=== PATIENT | female | born 1950 | race Caucasian/White ===

== ENCOUNTER 2019-01-29 07:33 | Inpatient (IN) | payer BC, MEDICARE ==
[~2019-01-29 07:33] MED LIST: Acetaminophen TAB* 325 MG PO ONE; Buffered Lidocaine 1% SYRIN* 1 ML/SYRINGE INTRADERM ONE; Dexamethasone IV* 4 MG/ML 1 ML (4 MG) IV SLOW PU ONE; Famotidine TAB* 20 MG PO ONE; Gabapentin CAP(*) 300 MG PO ONE; Tranexamic Acid 1,000 MG in NS 0.9% 50 ML* (outpatient use) IV SCH; celeCOXIB CAP* 200 MG PO ONE
[2019-01-29] MEDS ORDERED: celeCOXIB CAP* 100 MG ONE (07:57)
[2019-01-29] MEDS ORDERED: Dexamethasone IV* 4 MG/ML 1 ML (4 MG) ONE (07:57)
[2019-01-29] MEDS ORDERED: Famotidine TAB* 20 MG ONE (07:58)
[2019-01-29] MEDS ORDERED: Acetaminophen TAB* 325 MG ONE (07:58)
[2019-01-29] MEDS ORDERED: Buffered Lidocaine 1% SYRIN* 1 ML/SYRINGE INTRADERM ONE (07:58)
[2019-01-29] MEDS ORDERED: Gabapentin CAP(*) 300 MG ONE (07:58)
[2019-01-29] MEDS ORDERED: ceFAZolin 2 GM in NS PREMIX(*) 2 GM/100 ML BAG IVPB ONE (07:59)
[2019-01-29] MEDS: Lactated Ringers 1000 ML Bag* 1,000 ML IV SCH ×2 (08:13→23:42)
[2019-01-29] MEDS ORDERED: Lidocaine 1%* 5 ML VIAL ONE (09:24)
[2019-01-29] MEDS ORDERED: ROPIVACAINE 5 MG/ML 30 ML BTL (0.5%) ONE (09:24)
[2019-01-29] MEDS ORDERED: Midazolam* 1 MG/ML 2 ML VIAL (2 MG) ONE (09:40)
[2019-01-29] MEDS ORDERED: fentaNYL* 50 MCG/ML 2 ML VIAL (100 MCG VIAL) ONE (09:40)
[2019-01-29] MEDS ORDERED: Lidocaine 1% MPF wEPI 200,000* 30 ML SDV ONE (10:21)
[2019-01-29] MEDS ORDERED: Bupivacaine 0.5%* 50 ML VIAL ONE (10:21)
[2019-01-29] MEDS ORDERED: Bupivacaine 0.25% EPI 200,000* 30 ML SDV ONE ×2 (10:29→11:25)
[2019-01-29] MEDS ORDERED: KETAMINE HCL* 50 MG/ML 10 ML VIAL ONE (11:22)
[2019-01-29] MEDS ORDERED: Propofol* 10 MG/ML 20 ML BTL ONE ×2 (11:29)
[2019-01-29] MEDS ORDERED: Acetaminophen IV 1GM/100ML * 1,000 MG/100 ML VIAL IVPB ONE (11:30)
[2019-01-29] MEDS ORDERED: Ondansetron INJ* 2 MG/ML VIAL IV PRN ×2 (11:30→12:54)
[2019-01-29] MEDS ORDERED: DiMENhydriNATE IV* 50 MG/ML VIAL IV PUSH PRN (11:30)
[2019-01-29] MEDS ORDERED: fentaNYL* 50 MCG/ML 2 ML VIAL (100 MCG VIAL) IV PRN (11:30)
[2019-01-29] MEDS ORDERED: HYDROmorphone INJ1* 1 MG/ML SYRINGE IV PRN (11:30)
[2019-01-29] MEDS ORDERED: oxyCODONE TAB* 5 MG TAB PO PRN (11:30)
[2019-01-29] MEDS ORDERED: Naloxone* 0.4 MG/ML 1 ML VIAL IV PRN (11:30)
[2019-01-29] MEDS ORDERED: Ketorolac INJ* 30 MG/ML 1 ML VIAL IV PRN (11:30)
[2019-01-29] MEDS ORDERED: Bisacodyl SUPP* 10 MG SUPP PR PRN (12:54)
[2019-01-29] MEDS ORDERED: Magnesium Hydroxide LIQ* 30 ML UDC PO PRN (12:54)
[2019-01-29] MEDS ORDERED: diPHENhydraMINE PO* 25 MG PO PRN (12:54)
[2019-01-29] MEDS ORDERED: Cyclobenzaprine TAB* 10 MG PO PRN (12:54)
[2019-01-29] MEDS ORDERED: diPHENhydraMINE IV* 50 MG/ML 1 ml VIAL (BENADRYL) IV PRN (12:54)
[2019-01-29] MEDS ORDERED: Ondansetron ODT TAB* 4 MG PO PRN (12:54)
[2019-01-29] MEDS ORDERED: Morphine 4 MG/ML VIAL (1 ml) 4 MG/ML VIAL IV PRN (12:54)
[2019-01-29] MEDS ORDERED: Acetaminophen TAB* 325 MG PO PRN (12:58)
[2019-01-29] MEDS ORDERED: Acetaminophen TAB* 325 MG PO SCH (13:00)
[2019-01-29] MEDS ORDERED: traMADol TAB* 50 MG PO SCH (13:00)
[2019-01-29] MEDS: Metoprolol Succinate XL TAB* 50 MG PO SCH (15:25)
[2019-01-29] MEDS: Acetaminophen TAB* 325 MG PO SCH ×2 (15:25→23:39)
[2019-01-29] MEDS: traMADol TAB* 50 MG PO SCH ×2 (15:26→20:10)
[2019-01-29] MEDS: D5W 1/2 NS 1000 ML BAG* 1,000 ML IV SCH ×2 (15:30→23:47)
[2019-01-29] MEDS: ceFAZolin 1 GM ADVAN(*) 1 GM in NS 0.9% 50 ML* 50 ML IVPB SCH ×2 (16:02→23:40)
--- NOTE | 2019-01-29 16:15 | CONS ---
CC: Dr. Rene; Dr. Rafa Jackson * CONSULTATION REPORT: DATE OF CONSULT: 01/29/19 PRIMARY CARE PROVIDER: Dr. Rafa Jackson. PHYSICIAN REQUESTING THE CONSULTATION: Dr. Rene from Orthopedic Surgery. REASON FOR CONSULTATION: Postoperative hypertension management. CHIEF COMPLAINT: Right knee pain. HISTORY OF PRESENT ILLNESS: Elin Jones is a 68-year-old female with history of hypertension, fibromyalgia, dyslipidemia, and Chiari malformation, status post repair, who presented to the hospital for elective right knee replacement that was performed today by Dr. Rene. The patient is seen postoperatively in the surgical care unit. She feels well and her postoperative pain in the right knee is minimal. The patient is here for management of her postoperative hypertension. PAST MEDICAL HISTORY: 1. History of fibromyalgia. 2. History of dyslipidemia. 3. History of Chiari malformation, status post cranial decompression surgery in 2012. 4. History of left knee surgery. 5. History of vein stripping in 2012. MEDICATIONS: At home includes: 1. Toprol-XL 50 mg at night. 2. Simvastatin 40 mg at bedtime. 3. Synthroid 50 mcg q.a.m. 4. Aspirin 81 mg daily. 5. Amitriptyline 25 mg at bedtime. 6. Acetaminophen on a p.r.n. basis. ALLERGIES: SULFA. FAMILY HISTORY: Father is and his family history is unknown. The patient's mother is well and alive. SOCIAL HISTORY: The patient denies any tobacco, alcohol, or drug use. Her surrogate decision maker is her sister, Genoveva. REVIEW OF SYSTEMS: Please see history of present illness. The patient stated that her pain in the right knee is well controlled postoperatively. Otherwise, all the 12 systems were reviewed with the patient and were otherwise negative. PHYSICAL EXAM: Blood pressure of 132/60, heart rate of 52 and regular, respiratory rate 16, oxygen saturation 99% on 2 L of oxygen nasal cannula, temperature of 96.8. General: The patient is a very pleasant 68-year-old female , who is in no acute distress. Alert, awake, and oriented x3. HEENT: Head: Atraumatic, normocephalic. Eyes: Pupils are equal and reactive to light and accommodation. Oropharynx is clear. Mucosa moist. Neck: Supple. No JVD. No bruits bilaterally. Cardiovascular: Regular rate and rhythm. No murmur. Respiratory: Clear to auscultation bilaterally. Abdomen: Soft, nontender. Bowel sounds are present in all 4 quadrants. Extremities: There is trace right ankle edema. Pulses are +2 bilaterally. There is no clubbing or cyanosis. The right knee is in postoperative dressings with cryo unit in place. On neuro evaluation, speech clear. Cranial nerves II through XII grossly intact. Motor strength is 5/5 bilaterally. On evaluation of skin, postoperative wound was not evaluated. Otherwise, the patient has no rashes or ecchymotic areas noted. DIAGNOSTIC STUDIES/LAB DATA: Current laboratory data, none. ASSESSMENT AND PLAN: 1. In regards to the patient's postoperative right knee management , that will be managed by as per Dr. Rene's service. 2. For the patient's hypertension, the patient's systolic pressure has been in the 150s to 160s. At this point, we start the patient's beta-harriet and she may need it titrated. For the time being, I suspect that may be once daily, but the morning administration may improve her blood pressure control. 3. For the patient's fibromyalgia, amitriptyline is going to be continued. 4. For the patient's hypothyroidism, we will continue the patient's Synthroid. 5. For the patient's dyslipidemia, Zocor is going to be continued. 6. For DVT prophylaxis, the patient was already started on warfarin as per the primary service. 7. The patient's code status is full and her surrogate is her sister. TIME SPENT: Approximately 55 minutes was spent on consultation of this patient , more than half that time was spent [id number] with the patient during the interview and physical exam. [id number]/[facility] #: [id number] [facility]
[2019-01-29] MEDS ORDERED: Warfarin TAB(*) 10 MG PO ONE (17:00)
[2019-01-29] MEDS: Atorvastatin* 20 MG TAB PO SCH (20:10)
[2019-01-29] MEDS: Aspirin EC TAB* 81 MG TAB.EC PO SCH (20:11)
[2019-01-29] MEDS: Amitriptyline TAB* 25 MG PO SCH (20:11)
[2019-01-29] MEDS: Docusate CAP* 100 MG PO SCH (20:12)
[2019-01-29] MEDS: Magnesium Hydroxide LIQ* 30 ML UDC PO SCH (20:12)
[2019-01-29] MEDS ORDERED: Metoprolol Succinate XL TAB* 50 MG PO SCH (21:00)
[2019-01-29] MEDS: oxyCODONE TAB* 5 MG TAB PO PRN (22:04)
--- NOTE | 2019-01-30 00:30 | OP ---
DATE OF OPERATION: 01/29/19 - ROOM #349 DATE OF : 52 SURGEON: Rangel Rene MD. DISPATCH SPECIALIST: Tammy Dunham RPA. ANESTHESIA: Regional/spinal/sedation. PRE-OP DIAGNOSIS: Osteoarthritis, right knee. POST-OP DIAGNOSIS: Osteoarthritis, right knee. OPERATIVE PROCEDURE: Right total knee arthroplasty. ESTIMATED BLOOD LOSS: Less than 25 cc. COMPLICATIONS: None. HARDWARE: Emilie Persona #5 noncemented femur, E noncemented tibia, 32-mm cemented patella, 11-mm polyethylene spacer. INDICATIONS: Ms. Jones is a 68-year-old female who had previously undergone a left partial knee arthroplasty. She had done quite well with this and the right knee has been giving her more and more pain and troubles. She was bone-on -bone in the patellofemoral compartment but also had spurs and narrowing in the lateral compartment. I discussed with her that I am hesitant to do a partial knee arthroplasty on the right as she has some arthritic signs within the knee. Therefore, we talked about a total knee arthroplasty and risks of surgery such as infection, scar formation, stiffness, DVT, pulmonary embolism, hardware failure, and continued pain were some of the risks discussed. She had been declared medically optimized and wished to proceed. DESCRIPTION OF PROCEDURE: The patient had a block placed in the holding area and was brought back to the OR. Spinal anesthesia was introduced. Stone catheter was placed and tourniquet was placed over the proximal right thigh. Total tourniquet time would be approximately 60 minutes. The right knee was prepped and then draped. Esmarch was used to exsanguinate the leg and the tourniquet was raised. A midline incision was made beginning just medial to the tibial tubercle and carried proximal for about 6 cm above the superior pole of the patella. Incision was carried down through the skin and subcutaneous fat. Small bleeders encountered were ligated using electrocautery. Extensor mechanism was exposed and a sharp parapatellar arthrotomy was made. Gush of clear yellowish joint fluid was encountered. Soft tissues were sharply elevated from the medial sides of the tibia and the fat pad was sharply excised. Patella measured approximately 21 mm in thickness and a 9-mm cut was taken. Initially, I thought my cut was perfect, but later it could be seen that I was a little bit more oblique and somehow more bone had been taken from the medial side. Attention was turned to the femur. A step drill was used to open the femoral canal and an intramedullary guide was placed. Outrigger was assembled and adjusted until it was parallel with the epicondyles and then this was pinned into place. Distal femoral cutting guide was then pinned into place and intramedullary guide was removed. Distal femoral cut was taken and it appeared a nice cut was obtained. This had been set to resect +2 mm of bone and was at 3 degrees. Femur was sized and she sat nicely for a 5. Holes were drilled, but the guide was one of the old posterior referencing guides and slowly had to be moved up until the superior drill hole came out right on the topside of the femoral cortex so that I would not notch the femur. Once this was confirmed, anterior and posterior femoral cuts followed by the chamfer cuts were taken. Excess bone was removed. Attention was turned to the tibia. Step drill was used to open the tibial canal and the intramedullary guide was placed. Outriggers were assembled and adjusted until it appeared to take 2 mm from the mildly worn medial side. Cutting guide was pinned into place and a proximal tibial cut was taken. A nice cut was obtained. A 10 spacer block was a little bit lose and with a drop tiffany, this came perfectly down the anterior spine of the tibia. With a 12, she was snug and had good stability. So, I thought we will probably go with an 11 or 12 depending on how her implants seated. Tibia was sized and an E sat very nicely. Drop tiffany was used to make sure I had the correct rotation and proximal holes were drilled. Attention was returned to the femur. Femoral notch was finished using the notch cut finishing guide and stud holes were drilled. Coming back to the patella, a 32 seemed to sit well and holes were drilled for the patella. She was then trialed with the 5 and the E and an 11-mm poly and seemed to come out nicely into full extension , was stable throughout and flexed quite well. Patella tracking was fine with the patella trial. Trial instrumentation was removed and the knee was copiously pulse lavaged. Cement was being prepared. Tibia and then femur were both impacted into place and a nice bite was obtained with both implants. Patella was then cemented into place and patella clamp was placed. Once the cement had started to harden, she was again trialed with the 11 and I liked the motion and stability. The knee was copiously pulse lavaged and polyethylene was then snapped into place. The knee was again copiously pulse lavaged and parapatellar arthrotomy was repaired using interrupted #1 Vicryl sutures. Tourniquet was let down and no significant bleeding was encountered. The remainder of the pulse lavage was used to wash out the subcutaneous tissues and the subcutaneous tissues were approximated with 2-0 Vicryl. The skin was closed using bar. Sterile dressing and a Cryo/ Cuff were applied in the OR. The patient was then awakened, stable on transfer to the recovery room. [id number]/[facility] #: [id number] VALORIE
[2019-01-30] MEDS: traMADol TAB* 50 MG PO SCH ×4 (03:36→22:02)
[2019-01-30 05:34] LABS: Hematocrit 33 % (33-41); Hemoglobin 11.4 g/dL (12.0-16.0); Mean Platelet Volume 8.1 fL (7.4-10.4); Platelet Count 172 10^3/uL (150-450)
[2019-01-30 05:45] LABS: INR 1.18 (0.82-1.09)
[2019-01-30 06:06] LABS: BUN/Creatinine Ratio 15.9 (8-20); Calcium 8.5 mg/dL (8.6-10.3); EGFR African American 77.6 (>60); EGFR Non-African American 64.1 (>60); Potassium 4.1 mmol/L (3.5-5.0)
[2019-01-30] MEDS: Acetaminophen TAB* 325 MG PO SCH ×2 (06:24→14:49)
--- NOTE | 2019-01-30 08:35 | PN ---
Subjective Date of Service: 01/30/19 Interval History: Pt feels well. Took one oxycodone for pain last night, otherwise the knee doesn' t hurt if she is not moving. Denies SOB/CP Objective Active Medications: Acetaminophen (Tylenol Tab*) 650 mg PO DAILY PRN PRN Reason: PAIN - MILD Acetaminophen (Tylenol Tab*) 975 mg PO Q8H [facility] Last Admin: 01/30/19 06:24 Dose: 975 mg Amitriptyline HCl (Elavil Tab*) 25 mg PO BEDTIME [facility] Last Admin: 01/29/19 20:11 Dose: 25 mg Aspirin (Aspirin Ec Tab*) 81 mg PO BEDTIME [facility] Last Admin: 01/29/19 20:11 Dose: 81 mg Atorvastatin Calcium (Lipitor*) 20 mg PO BEDTIME [facility] Last Admin: 01/29/19 20:10 Dose: 20 mg Bisacodyl (Dulcolax Supp*) 10 mg SC DAILY PRN PRN Reason: constipation Cyclobenzaprine HCl (Flexeril Tab*) 10 mg PO TID PRN PRN Reason: SPASMS Diphenhydramine HCl (Benadryl Iv*) 25 mg IV Q6H PRN PRN Reason: itching Diphenhydramine HCl (Benadryl Po*) 25 mg PO Q6H PRN PRN Reason: itching Docusate Sodium (Colace Cap*) 100 mg PO BID [facility] Last Admin: 01/29/19 20:12 Dose: 100 mg Heparin Sodium (Porcine) (Heparin Vial(*)) 5,000 units SUBCUT Q8HR [facility] Levothyroxine Sodium (Synthroid Tab*) 50 mcg PO QAM [facility] Magnesium Hydroxide (Milk Of Magnesia Liq*) 30 ml PO BID [facility] Last Admin: 01/29/19 20:12 Dose: 30 ml Magnesium Hydroxide (Milk Of Magnesia Liq*) 30 ml PO Q6H PRN PRN Reason: constipation Metoprolol Succinate (Toprol Xl Tab*) 50 mg PO DAILY [facility] Last Admin: 01/29/19 15:25 Dose: 50 mg Morphine Sulfate (Morphine 4 Mg/Ml Vial (1 Ml)) 2 mg IV Q2H PRN PRN Reason: PAIN - BREAKTHROUGH Ondansetron HCl (Zofran Inj*) 4 mg IV Q6H PRN PRN Reason: nausea Ondansetron HCl (Zofran Odt Tab*) 4 mg PO Q6H PRN PRN Reason: NAUSEA Oxycodone HCl (Roxycodone Tab*) 10 mg PO ONCE PRN PRN Reason: SEVERE PAIN Oxycodone HCl (Roxycodone Tab*) 10 mg PO Q4H PRN PRN Reason: PAIN - SEVERE Last Admin: 01/29/19 22:04 Dose: 5 mg Pharmacy Profile Note (Coumadin Daily Reminder*) 1 note FOLLOW UP 1700 [facility] Last Admin: 01/29/19 16:45 Dose: 1 note Tramadol HCl (Ultram*) 50 mg PO 0300,0900,1500,2100 [facility] Last Admin: 01/30/19 03:36 Dose: 50 mg Vital Signs - 8 hr 01/30/19 01/30/19 01/30/19 03:35 03:36 06:24 Temperature 98.2 F Pulse Rate 75 Respiratory 17 16 16 Rate Blood Pressure 124/58 (mmHg) O2 Sat by Pulse 94 Oximetry Oxygen Devices in Use Now: None Appearance: 68 yo F in nAD, AAOx3 Eyes: No Scleral Icterus, PERRLA Ears/Nose/Mouth/Throat: NL Teeth, Lips, Gums, Mucous Membranes Moist Neck: NL Appearance and Movements; NL JVP, Trachea Midline Respiratory: Symmetrical Chest Expansion and Respiratory Effort, Clear to Auscultation Cardiovascular: NL Sounds; No Murmurs; No JVD, RRR Abdominal: NL Sounds; No Tenderness; No Distention, No Hepatosplenomegaly Lymphatic: No Cervical Adenopathy Extremities: No Clubbing, Cyanosis, - - trace pedal edema in R post op leg, R knee in cryo unit Neurological: Alert and Oriented x 3, NL Muscle Strength and Tone Result Diagrams: 01/30/19 04:49 01/30/19 04:49 Assess/Plan/Problems-Billing Assessment: 68 yo F with h/o HTN, Chiari malformation s/p elective R knee replacement on 01/29/19 - Patient Problems (1) Knee joint replacement status Comment: as per ortho (2) HTN (hypertension) Comment: controlled, cont toprol XL (3) Hypothyroidism Comment: cont synthroid (4) Hyperglycemia Comment: check HbA1C (5) DVT prophylaxis Comment: SCD's and coumadin as per ortho Status and Disposition: thank you for consult, will sign off and see prn
[2019-01-30] MEDS: Docusate CAP* 100 MG PO SCH ×2 (08:50→22:05)
[2019-01-30] MEDS: ceFAZolin 1 GM ADVAN(*) 1 GM in NS 0.9% 50 ML* 50 ML IVPB SCH (08:50)
[2019-01-30] MEDS: Magnesium Hydroxide LIQ* 30 ML UDC PO SCH ×2 (08:51→22:05)
[2019-01-30] MEDS: Levothyroxine TAB* 50 MCG TAB PO SCH (08:51)
[2019-01-30] MEDS: Metoprolol Succinate XL TAB* 50 MG PO SCH (08:51)
[2019-01-30] MEDS: Heparin VIAL(*) 5000 UNITS/ML VIAL (FIVE THOUSAND) SUBCUT SCH ×3 (10:20→22:03)
--- NOTE | 2019-01-30 10:30 | PN ---
Progress Note - Progress Note Date of Service: 01/30/19 SOAP: Subjective: [] Pt seen at bedside. She feels well with well controlled knee pain. denies CP, SOB, dizziness, nausea Objective: []General: NAD, appears well RLE: Right knee dressing CDI, thigh soft, DF/PF intact, sensation intact to light touch distally, DP2+ Calves supple and nontender without erythema, edema or palpable cords Assessment: []POD 1 sp RTK Plan: []WBAT PT/OT heparin bridge to coumadin, 6 mg today Has yet to participate with PT today, PT in the room to begin session Vital Signs Temp 98.4 F 01/30/19 07:44 Pulse 66 01/30/19 07:44 Resp 18 01/30/19 08:51 BP 122/50 01/30/19 07:44 Pulse Ox 95 01/30/19 07:44 Intake & Output 01/29/19 01/30/19 01/30/19 18:59 06:59 18:59 Intake Total 2670 1822 1045 Output Total 1150 2350 Balance 1520 -528 1045 Weight 202 lb Intake: IV Fluids 0 862 1045 ABX - CEFAZOLIN 55 D5W 1/2 NS 862 990 LR 1900 NS 100ML, Cefazolin 2G 100 TRANSEXAMIC ACID 1G 50 IVPB 110 ABX - CEFAZOLIN 110 Oral 620 850 Output: Stone 1000 2350 Estimated Blood Loss 150 Laboratory Last Values Hgb 11.4 g/dL (12.0-16.0) L 01/30/19 04:49 Hct 33 % (33-41) 01/30/19 04:49 Plt Count 172 10^3/uL (150-450) 01/30/19 04:49 MPV 8.1 fL (7.4-10.4) 01/30/19 04:49 INR (Anticoag Therapy) 1.18 (0.82-1.09) H 01/30/19 04:49 Sodium 137 mmol/L (135-145) 01/30/19 04:49 Potassium 4.1 mmol/L (3.5-5.0) 01/30/19 04:49 Chloride 105 mmol/L (101-111) 01/30/19 04:49 Carbon Dioxide 27 mmol/L (22-32) 01/30/19 04:49 Anion Gap 5 mmol/L (2-11) 01/30/19 04:49 BUN 14 mg/dL (6-24) 01/30/19 04:49 Creatinine 0.88 mg/dL (0.51-0.95) 01/30/19 04:49 Est GFR ( Amer) 77.6 (>60) 01/30/19 04:49 Est GFR (Non-Af Amer) 64.1 (>60) 01/30/19 04:49 BUN/Creatinine Ratio 15.9 (8-20) 01/30/19 04:49 Glucose 168 mg/dL (70-100) H 01/30/19 04:49 Hemoglobin A1c 5.4 % (4.0-5.6) 01/30/19 04:45 Calcium 8.5 mg/dL (8.6-10.3) L 01/30/19 04:49
[2019-01-30] MEDS ORDERED: Warfarin TAB(*) 6 MG PO ONE (17:00)
[2019-01-30] MEDS: oxyCODONE TAB* 5 MG TAB PO PRN (18:05)
[2019-01-30] MEDS: Aspirin EC TAB* 81 MG TAB.EC PO SCH (22:01)
[2019-01-30] MEDS: Amitriptyline TAB* 25 MG PO SCH (22:01)
[2019-01-30] MEDS: Atorvastatin* 20 MG TAB PO SCH (22:01)
[2019-01-31] MEDS: oxyCODONE TAB* 5 MG TAB PO PRN (00:14)
[2019-01-31] MEDS: Acetaminophen TAB* 325 MG PO SCH (00:15)
[2019-01-31] MEDS: traMADol TAB* 50 MG PO SCH ×2 (03:27→09:42)
[2019-01-31] MEDS: Heparin VIAL(*) 5000 UNITS/ML VIAL (FIVE THOUSAND) SUBCUT SCH (06:02)
[2019-01-31 06:18] LABS: Hematocrit 33 % (33-41); Hemoglobin 11.1 g/dL (12.0-16.0); Mean Platelet Volume 8.2 fL (7.4-10.4); Platelet Count 153 10^3/uL (150-450)
[2019-01-31] MEDS: Levothyroxine TAB* 50 MCG TAB PO SCH (09:41)
[2019-01-31] MEDS: Magnesium Hydroxide LIQ* 30 ML UDC PO SCH (09:42)
[2019-01-31] MEDS: Docusate CAP* 100 MG PO SCH (09:42)
[2019-01-31] MEDS: Metoprolol Succinate XL TAB* 50 MG PO SCH (09:42)
--- NOTE | 2019-01-31 11:01 | PN ---
Progress Note - Progress Note Date of Service: 01/31/19 SOAP: Subjective: []Pt seen and examined at bedside. She feels well, pain is controlled. Denies CP , SOB, dizziness, nausea. Objective: []General: NAD, appears well RLE: Right knee dressing changed, incision CDI, thigh soft, DF/PF intact, sensation intact to light touch distally, DP2+ Calves supple and nontender without erythema, edema or palpable cords Assessment: []POD 2 sp RTK Plan: []WBAT PT/OT heparin bridge until DC then coumadin for 30 days post op DC home today Vital Signs Temp 98.7 F 01/31/19 03:32 Pulse 75 01/31/19 03:32 Resp 18 01/31/19 09:42 BP 121/74 01/31/19 03:32 Pulse Ox 94 01/31/19 04:43 Intake & Output 01/30/19 01/31/19 01/31/19 18:59 06:59 18:59 Intake Total 1685 760 Output Total 700 0 400 Balance 985 760 -400 Intake: IV Fluids 1045 ABX - CEFAZOLIN 55 D5W 1/2 NS 990 Oral 640 760 Output: Urine 400 0 400 Stone 300 Other: Estimated Void Medium Medium # Bowel Movements 1 0 Estimated Stool Amount Medium # Voids 1 1 Laboratory Last Values Hgb 11.1 g/dL (12.0-16.0) L 01/31/19 05:47 Hct 33 % (33-41) 01/31/19 05:47 Plt Count 153 10^3/uL (150-450) 01/31/19 05:47 MPV 8.2 fL (7.4-10.4) 01/31/19 05:47 INR (Anticoag Therapy) 2.00 (0.82-1.09) H 01/31/19 05:47 Sodium 137 mmol/L (135-145) 01/30/19 04:49 Potassium 4.1 mmol/L (3.5-5.0) 01/30/19 04:49 Chloride 105 mmol/L (101-111) 01/30/19 04:49 Carbon Dioxide 27 mmol/L (22-32) 01/30/19 04:49 Anion Gap 5 mmol/L (2-11) 01/30/19 04:49 BUN 14 mg/dL (6-24) 01/30/19 04:49 Creatinine 0.88 mg/dL (0.51-0.95) 01/30/19 04:49 Est GFR ( Amer) 77.6 (>60) 01/30/19 04:49 Est GFR (Non-Af Amer) 64.1 (>60) 01/30/19 04:49 BUN/Creatinine Ratio 15.9 (8-20) 01/30/19 04:49 Glucose 168 mg/dL (70-100) H 01/30/19 04:49 Hemoglobin A1c 5.4 % (4.0-5.6) 01/30/19 04:45 Calcium 8.5 mg/dL (8.6-10.3) L 01/30/19 04:49
--- NOTE | 2019-01-31 11:09 | DS ---
Orthopedic Discharge Summary - Discharge Summary Date of Admission:01/29/19 Date of Discharge: 01/31/19 Date of Surgery: 01/29/19 Attending Orthopedic Provider: Dr Rene Pre-operative Diagnosis: right knee osteoarthritis Operative Procedure: Right total knee arthroplasty Condition of Patient: stable History: LEONARD OLMEDO is a 68 year old F with years of increasingly severe right knee pain. Patient has failed conservative management and has elected to undergo a total right total knee replacement Hospital Course: LEONARD was admitted to [facility] on 01/29/19. Patient underwent a right total knee replacement without complication followed by a brief recovery in PACU and transfer to the Short Stay Surgical Unit in stable condition. Our hospitalist service, physical therapy and occupational therapy also participated in this patients care. Post-op day 1: patient was alert and in no acute distress. Dressing was clean, dry and intact. Operative extremity dorsiflexion and plantarflexion intact, sensation intact to light touch distally, DP2+. Post-op day two: dressing was changed, incision was clean , dry and intact. Patient was deemed to be medically and orthopedically stable for discharge home. Physical therapy goals were met. Home Medications Medication Instructions Recorded Confirmed Type Amitriptyline TAB* Elavil TAB* 25 mg PO BEDTIME 05/10/16 01/29/19 History Simvastatin [Zocor 40 MG (NF)] 40 mg PO BEDTIME 05/10/16 01/29/19 History Acetaminophen TAB* [Tylenol TAB*] 650 mg PO DAILY PRN #0 MDD 650 05/20/1601/29 Rx Aspirin [Aspir-Low] 81 mg PO BEDTIME 01/17/19 01/29/19 History Levothyroxine TAB* [Synthroid TAB*] 50 mcg PO QAM 01/17/19 01/29/19 History Metoprolol Succinate 50 mg PO BEDTIME 01/17/19 01/29/19 History Acetaminophen TAB* [Tylenol TAB*] 975 mg PO Q8H tab 01/31/19 Rx Docusate CAP* [Colace Cap*] 100 mg PO BID #90 cap 01/31/19 Rx Warfarin TAB(*) [Coumadin TAB(*)] 2 mg PO DAILY 30 Days #90 tab 01/31/19 Rx traMADol TAB* [Ultram*] 50 mg PO 0300,0900,1500,2100 PRN 01/31/19 Rx #56 tab MDD 8 DC to home in stable condition on 01/31/19 with home care Discharge Instructions following Orthopedic Surgery: Activity: * Weight Bearing as tolerated * Continue physical therapy and occupational therapy exercises as shown * home PT Wound care: * OK to shower on post-op day 3, no bathing, swimming, or submerging wound. * Use gentle soap, pat dry. Cover with gauze, TONY wrap or tape. * Visiting home nurse to do wound checks. Call Orthopedic office for: * Increased drainage * Redness * Increased pain * Fever Go to ER with shortness of breath or chest pain. Diet: * Regular diet * Increase fluids and fiber to prevent constipation. * Continue to use stool softeners, call office if no bowel motion within 48 hours. Medications See Home Medication List in your packet for medications that you should take after discharge. DVT Prophylaxis: Be aware bleeding tendency is increased by blood thinners Coumadin Dosing: * Please note that you have been given 2 mg tablets. * Visiting home nurse to draw blood work for INR on Tuesday and for 30 days * You will be provided with dose instructions on Mondays and . * If you do not receive dosing instruction on dosing, please call our office right away. Please bettina dosing instructions on your calendar as they are provided to you. * Dosin mg 01/31 * 02/01 recheck INR blood draw for further dosing instructions. Call orthopedic office if you do not receive dosing instructions. Pain Control: Percocet Dosin/325 mg 1-2 tabs by mouth every 4-6 hours as needed for pain. Maximum of 10 tabs per day. hold for sedation. Wean off as soon as able Please note that Percocet contains Tylenol (acetaminophen). Maximum daily dose of Tylenol is 4000 mg from all sources. Antibiotics are required prior to any dental work. FOLLOW UP: Follow up with [Chano] Within 10-14 days, call for appointment Please call our office with any questions or concerns ([phone])
[2019-01-31 11:14] VITALS: BP 153/62
== END 2019-01-31 14:05 | disposition home health service (06) | DRG 470 ==
LOC: AA 07:33 → SSU 12:54
PROVIDERS: ADMIT Orthopaedic Surgery; ATTEND Orthopaedic Surgery
PROC: 0SRC0J9 Replacement of Right Knee Joint with Synthetic Substitute, Cemented, Open Approach (ICD-10-PCS; principal; 2019-01-29 09:30)
DX: M17.11 Unilateral primary osteoarthritis, right knee (principal); I10 Essential (primary) hypertension; E03.9 Hypothyroidism, unspecified; R73.9 Hyperglycemia, unspecified; M79.7 Fibromyalgia; E78.5 Hyperlipidemia, unspecified; Z79.1 Long term (current) use of non-steroidal anti-inflammatories (NSAID); Z79.82 Long term (current) use of aspirin; Z79.899 Other long term (current) drug therapy; Z87.891 Personal history of nicotine dependence; Z88.2 Allergy status to sulfonamides; Z88.1 Allergy status to other antibiotic agents
CPT/HCPCS: 36415; 80048; 83036; 85014; 85018; 85049; 85610; A9270-GY; G8978-GP-CJ; G8979-GP-CI; J0690; J1100; J1644; J2001; J2250; J2704; J2795; J3010; J3490